=== PATIENT | male | born 1975 | race Caucasian/White ===

== ENCOUNTER 2017-05-15 01:24 | Emergency (ER) | payer BC ==
[~2017-05-15] VITALS: Ht 177.8 cm; Wt 95.3 kg
--- NOTE | 2017-05-15 01:39 | NUR ---
Pt ambulated to room with steady gait. Pt c/o wound to R. joyner with redness, swelling and pain. Pt seen by Dr. Gonzales, awaiting further orders.
[2017-05-15] MEDS ORDERED: SULFAMETH/TRIMETH 800/160 MG TABLET PO ONE (01:45)
[2017-05-15] MEDS ORDERED: HYDROMORPHONE 1 MG/1 ML DISP.SYRIN IM ONE (01:45)
[2017-05-15] MEDS ORDERED: PROMETHAZINE HCL 25 MG/1 ML VIAL IM ONE (01:45)
--- NOTE | 2017-05-15 01:56 | NUR ---
Pt given po ABT. Pt requested injection of pain medication prior to discharge. Dr. Gonzales notified. Pt medicated for discomfort, will monitor for effects of medication. Pt resting in position of comfort for self.
[2017-05-15] MEDS ORDERED: SULFAMETH/TRIMETH 800/160 MG TABLET ONE (01:57)
[2017-05-15] MEDS ORDERED: PROMETHAZINE HCL 25 MG/1 ML VIAL ONE (02:03)
[2017-05-15] MEDS ORDERED: HYDROMORPHONE 2 MG/1 ML DISP.SYRIN ONE (02:03)
--- NOTE | 2017-05-15 02:13 | NUR ---
Pt sts pain improved. Pt stable for discharge per Dr. Gonzales. Pt given ACI. Pt verbalized understanding of dc instructions. Pt ambulated out of ER with steady gait.
[2017-05-15 02:40] VITALS: BP 147/88
== END 2017-05-15 02:13 | disposition home or self-care (01) ==
LOC: ER 01:36
DX: L03.115 Cellulitis of right lower limb (principal); F17.200 Nicotine dependence, unspecified, uncomplicated
CPT/HCPCS: A4663; J1170; J2550